=== PATIENT | female | born 1960 | race Caucasian/White ===

== ENCOUNTER → 2018-02-18 | Outpatient (CLI) | payer MEDICARE | END | disposition home or self-care (01) | LOC: SURG 14:22 | PROVIDERS: ATTEND Anesthesiology Pain Medicine | DX: M47.22 Other spondylosis with radiculopathy, cervical region (principal); M47.26 Other spondylosis with radiculopathy, lumbar region; M06.9 Rheumatoid arthritis, unspecified; G89.4 Chronic pain syndrome | CPT/HCPCS: 99205 ==